=== PATIENT | female | born 1990 | race Caucasian/White ===

== ENCOUNTER 2017-04-23 09:38 | Observation (INO) | payer MEDICAID ==
[~2017-04-23] VITALS: Ht 154.9 cm; Wt 87.2 kg
[~2017-04-23 09:38] MED LIST: IBUP-1222 PO; ONDA4TAB10 PO; PREN1TAB52 PO; PRENATAL
[2017-04-23 09:48] VITALS: BP 94/51
[2017-04-23] MEDS ORDERED: ACETAMINOPHEN 325 MG TABLET ONE (10:28)
[2017-04-23] MEDS ORDERED: OXYcodone/APAP 5/325MG TABLET PO PRN (10:30)
[2017-04-23] MEDS ORDERED: ACETAMINOPHEN 325 MG TABLET PO PRN (10:30)
[2017-04-23] MEDS ORDERED: OXYcodone/APAP 5/325MG TABLET ONE (13:08)
== END 2017-04-23 15:32 | disposition home or self-care (01) ==
LOC: LDOP 09:38 → LDIP 10:28
PROVIDERS: ADMIT Obstetrics & Gynecology; ATTEND Obstetrics & Gynecology
DX: O26.893 Other specified pregnancy related conditions, third trimester (principal); M54.5 Low back pain; Z3A.34 34 weeks gestation of pregnancy; W19.XXXA Unspecified fall, initial encounter; Y93.89 Activity, other specified; Y92.89 Other specified places as the place of occurrence of the external cause; Y99.8 Other external cause status
CPT/HCPCS: 59025; 76815; G0378

== ENCOUNTER → 2017-06-02 | Outpatient (CLI) | payer MEDICAID ==
[~2017-06-02] VITALS: Ht 154.9 cm; Wt 88.0 kg
== END | disposition home or self-care (01) ==
LOC: LDOP 22:58
PROVIDERS: ATTEND Obstetrics & Gynecology
DX: O42.92 Full-term premature rupture of membranes, unspecified as to length of time between rupture and onset of labor (principal); O62.9 Abnormality of forces of labor, unspecified; O11.3 Pre-existing hypertension with pre-eclampsia, third trimester; O48.0 Post-term pregnancy; Z3A.40 40 weeks gestation of pregnancy
CPT/HCPCS: 59025; 89060; 99211; G0463; Q0114

== ENCOUNTER 2017-06-10 02:13 | Inpatient (IN) | payer MEDICAID ==
[~2017-06-10] VITALS: Ht 154.9 cm; Wt 88.6 kg
[2017-06-10] MEDS ORDERED: NEWBORN KIT ONE (02:31)
[2017-06-10] MEDS ORDERED: D5%-LACTATED RINGERS 1,000 ML IV SCH (02:47)
[2017-06-10] MEDS ORDERED: LACTATED RINGERS 1,000 ML IV SCH (02:47)
[2017-06-10] MEDS ORDERED: OXYTOCIN 30U/ 0.9% NaCL 500ML 500 ML IV ONE (02:47)
[2017-06-10] MEDS ORDERED: ALUMINUM/MAG/SIMETHICONE 30 ML UDC PO PRN (03:00)
[2017-06-10] MEDS ORDERED: SODIUM CITRATE/CITRIC ACID 30 ML UDC PO PRN (03:00)
[2017-06-10] MEDS ORDERED: ONDANSETRON 2MG/ML, 2ML IVPush PRN (03:00)
[2017-06-10] MEDS ORDERED: CALCIUM CARBONATE 500 MG TAB.CHEW PO PRN (03:00)
[2017-06-10] MEDS ORDERED: FENTANYL PF 100 MCG/2ML IV PRN (03:00)
[2017-06-10] MEDS ORDERED: FENTANYL PF 100 MCG/2ML IVPush PRN (03:00)
[2017-06-10] MEDS ORDERED: TERBUTALINE 1 MG/ML, 1ML IVPush PRN ×2 (03:00)
[2017-06-10] MEDS ORDERED: METOCLOPRAMIDE 5 MG/ML, 2ML IVPush PRN (03:00)
[2017-06-10] MEDS ORDERED: LIDOCAINE 1%, 20ML ONE (03:02)
[2017-06-10] MEDS ORDERED: OXYTOCIN 30U/ 0.9% NaCL 500ML 500 ML ONE (03:02)
[2017-06-10] MEDS ORDERED: MISOPROSTOL 200 MCG TABLET ONE (03:02)
[2017-06-10] MEDS ORDERED: PLEASE ENTER HEIGHT AND WEIGHT MC SCH (03:30)
[2017-06-10] MEDS ORDERED: FENTANYL/BUPIV./NS/PF 250 ML EPIDCONT ONE (03:50)
[2017-06-10] MEDS ORDERED: OXYTOCIN 30U/ 0.9% NaCL 500ML 500 ML IV PRN (05:56)
[2017-06-10] MEDS ORDERED: FENTANYL/BUPIV./NS/PF 250 ML EPIDCONT SCH (06:48)
[2017-06-10] MEDS ORDERED: LACTATED RINGERS 1,000 ML IVBOLUS PRN ×2 (07:00→21:00)
[2017-06-10 07:23] VITALS: BP 100/57
[2017-06-10] MEDS ORDERED: OXYTOCIN 30U/ 0.9% NaCL 500ML 500 ML IV SCH (11:11)
[2017-06-10] MEDS ORDERED: IBUPROFEN 600 MG TABLET ONE (11:14)
[2017-06-10] MEDS: IBUPROFEN 600 MG TABLET PO PRN ×2 (11:19→19:35)
[2017-06-10] MEDS ORDERED: ONDANSETRON 2MG/ML, 2ML IV PRN ×2 (11:30→21:00)
[2017-06-10] MEDS ORDERED: OXYcodone/APAP 5/325MG TABLET PO PRN ×4 (11:30→21:00)
[2017-06-10] MEDS ORDERED: MISOPROSTOL 200 MCG TABLET SL PRN ×2 (11:30→21:00)
[2017-06-10] MEDS ORDERED: ACETAMINOPHEN 325 MG TABLET PO PRN ×2 (11:30→21:00)
[2017-06-10] MEDS: LACTATED RINGERS 1,000 ML IV SCH ×3 (12:41→22:48)
[2017-06-10 14:15] VITALS: BP 100/58
[2017-06-10] MEDS: DOCUSATE 100 MG CAPSULE PO PRN (19:35)
[2017-06-10 19:53] VITALS: BP 108/69
[2017-06-10] MEDS: FENTANYL/BUPIV./NS/PF 250 ML EPIDCONT SCH (21:00)
[2017-06-10] MEDS: OXYTOCIN 30U/ 0.9% NaCL 500ML 500 ML IV SCH (21:00)
[2017-06-11] VITALS: BP 101/67
[2017-06-11] MEDS: IBUPROFEN 600 MG TABLET PO PRN ×4 (01:40→20:13)
[2017-06-11 06:00] VITALS: BP 93/58
[2017-06-11] MEDS: LACTATED RINGERS 1,000 ML IV SCH ×3 (06:48→22:48)
[2017-06-11] MEDS: OXYTOCIN 30U/ 0.9% NaCL 500ML 500 ML IV SCH ×2 (07:00→17:00)
[2017-06-11] MEDS: DOCUSATE 100 MG CAPSULE PO PRN ×2 (07:53→20:13)
[2017-06-11 08:01] VITALS: BP 104/69
[2017-06-11] MEDS ORDERED: PRENATAL VIT/IRON/FA 1 EACH TABLET PO SCH (09:00)
[2017-06-11] MEDS: PRENATAL VIT/IRON/FA 1 EACH TABLET PO SCH (09:54)
[2017-06-11] MEDS: FENTANYL/BUPIV./NS/PF 250 ML EPIDCONT SCH (17:50)
[2017-06-12] MEDS: OXYTOCIN 30U/ 0.9% NaCL 500ML 500 ML IV SCH (03:00)
[2017-06-12] MEDS: IBUPROFEN 600 MG TABLET PO PRN ×2 (03:04→09:09)
[2017-06-12 07:10] VITALS: BP 114/74
[2017-06-12] MEDS: PRENATAL VIT/IRON/FA 1 EACH TABLET PO SCH (09:08)
[2017-06-12] MEDS: DOCUSATE 100 MG CAPSULE PO PRN (09:08)
== END 2017-06-12 14:00 | disposition home or self-care (01) | DRG 775 ==
LOC: LDOP 02:13 → LDIP 02:43 → 2NW 14:18
PROVIDERS: ADMIT Obstetrics & Gynecology; ATTEND Obstetrics & Gynecology
PROC: 10E0XZZ Delivery of Products of Conception, External Approach (ICD-10-PCS; principal; 2017-06-10)
PROC: 0HQ9XZZ Repair Perineum Skin, External Approach (ICD-10-PCS; 2017-06-10)
PROC: 00HU33Z Insertion of Infusion Device into Spinal Canal, Percutaneous Approach (ICD-10-PCS; 2017-06-10)
PROC: 3E0R3CZ (ICD-10-PCS; 2017-06-10)
PROC: 10907ZC Drainage of Amniotic Fluid, Therapeutic from Products of Conception, Via Natural or Artificial Opening (ICD-10-PCS; 2017-06-10)
DX: O34.219 Maternal care for unspecified type scar from previous cesarean delivery (principal); O77.0 Labor and delivery complicated by meconium in amniotic fluid; O48.0 Post-term pregnancy; Z37.0 Single live birth; Z3A.41 41 weeks gestation of pregnancy; O70.0 First degree perineal laceration during delivery
CPT/HCPCS: 36415; 85025; 86850; 86900; J2590; J3010; J7120; J7121